=== PATIENT | female | born 1980 | race Caucasian/White ===

== ENCOUNTER 2016-11-28 11:12 | Emergency (ER) | payer OTHER ==
[~2016-11-28] VITALS: Ht 167.6 cm; Wt 105.4 kg
[~2016-11-28 11:12] MED LIST: FLEXERIL5 MG PO; IBUPROFEN200 M1 PO; KLONOPIN0.5 M1 PO; METHADONE H5 MG/5 ML PO; METHADONE HCL40 MG PO; NEURONTIN600 MG PO; NOHOMEMEDS; SEROQUEL200 MG PO; ZOFRAN ODT4 MG PO
[2016-11-28 11:13] VITALS: BP 103/55
[2016-11-28] MEDS ORDERED: EVZIO0.4 MG/0.4 IM (12:09)
== END 2016-11-28 12:16 | disposition left against medical advice (07) ==
LOC: EME 11:12
DX: T40.3X1A Poisoning by methadone, accidental (unintentional), initial encounter (principal); T48.201A Poisoning by unspecified drugs acting on muscles, accidental (unintentional), initial encounter; R41.82 Altered mental status, unspecified; R55 Syncope and collapse; R53.1 Weakness; F17.200 Nicotine dependence, unspecified, uncomplicated; F19.10 Other psychoactive substance abuse, uncomplicated
CPT/HCPCS: 80048; 81003; 84484; 84702; 85027; 99281; 99283; G0480

== ENCOUNTER 2016-12-08 20:19 | Emergency (ER) | payer OTHER ==
[~2016-12-08] VITALS: Ht 172.7 cm; Wt 103.4 kg
[~2016-12-08 20:19] MED LIST changes: +EVZIO0.4 MG/0.4 IM
[2016-12-08 21:07] LABS: EOSINOPHIL (%) 0 % (0-5); HEMATOCRIT 39.4 % (36.0-46.0); IMMATURE GRANULOCYTE (%) 0.2 % (0.0-0.7); LYMPHOCYTE COUNT 3.1 K/uL (1.0-2.8); MCH 28.1 PG (29.0-34.0); MCHC 33.5 G/DL (30.0-36.0); MCV 83.8 FL (83-99); MONOCYTE (%) 4.4 % (3-12); MONOCYTE COUNT 0.5 K/uL (0-0.8); NEUTROPHIL (%) 68.4 % (45-76); RBC DIS.WIDTH-CV 14.8 % (11.8-14.6); WHITE BLOOD COUNT 11.7 K/uL (4.1-10.2)
[2016-12-08 21:44] LABS: CHLORIDE 107 mEq/L (99-109); POTASSIUM 3.1 mEq/L (3.7-5.4); SODIUM 140 mEq/L (136-147)
[2016-12-08 21:45] LABS: GLUCOSE 118 mg/dL (70-99)
[2016-12-08 21:47] LABS: ANION GAP 9 MEQ/L (2-14)
[2016-12-08 21:49] LABS: GFR ESTIMATE (CALCULATED) > 59 mL/min/
[2016-12-08 21:50] LABS: UREA NITROGEN (BUN) 12 mg/dL (9-23)
[2016-12-08 22:18] LABS: PLAT.SUFFICIENCY ADEQUATE; PLATELET COUNT 221 K/uL (156-360)
[2016-12-08] MEDS ORDERED: NARCAN4 MG NS (23:19)
[2016-12-08 23:32] VITALS: BP 118/93
== END 2016-12-08 23:32 | disposition home or self-care (01) ==
LOC: EME 20:19
PROVIDERS: Emergency Medicine
DX: F19.10 Other psychoactive substance abuse, uncomplicated (principal); T50.901A Poisoning by unspecified drugs, medicaments and biological substances, accidental (unintentional), initial encounter; F17.200 Nicotine dependence, unspecified, uncomplicated
CPT/HCPCS: 71010; 80048; 85025; 93005; 99281; 99284